=== PATIENT | male | born 1950 | race African-American/Black ===

== ENCOUNTER 2021-02-19 19:29 | Emergency (ER) | payer OTHER, SELFPAY | END 2021-02-19 20:04 | disposition home or self-care (01) | LOC: BURERS 19:29 | DX: S40.011A Contusion of right shoulder, initial encounter (principal); F17.210 Nicotine dependence, cigarettes, uncomplicated; W01.10XA Fall on same level from slipping, tripping and stumbling with subsequent striking against unspecified object, initial encounter ==

== ENCOUNTER 2022-09-20 10:29 | Emergency (ER) | payer MEDICARE ==
[2022-09-20] MEDS ORDERED: Ipratropium/Albuterol 3 ML NEB ONE (11:24)
[2022-09-20 11:44] LABS: #Basophils 0.1 thou/uL (0.0-0.2); #Eosinphils 0.3 thou/uL (0.0-0.7); #Lymphocytes 1.5 thou/uL (1.20-3.40); #Monocytes 0.4 thou/uL (0.11-0.59); #Neutrophils 2.4 thou/uL (1.40-6.50); %Basophils 2.7 % (0.0-1.0); %Eosinophils 5.9 % (0.0-10.0); %Monocytes 7.6 % (0.0-10.0); %Neutrophils 50.9 % (42.0-75.0); Mean Corpuscular HGB CONC 36.1 g/dL (32.0-36.0); Mean Corpuscular Hemoglobin 30.8 pg (27.0-31.0); Mean Corpuscular Volume 85.3 fl (78.0-98.0); Mean Platelet Volume 8.3 fL (7.4-10.4); Platelet Count 241 10x3/uL (130-400); Red Blood Cell (RBC) Count 5.54 mill/uL (4.70-6.10); White Blood Cell (WBC) Count 4.7 10x3/uL (4.8-10.8)
[2022-09-20 11:58] LABS: ALT (SGPT) 20 U/L (8-55); AST (SGOT) 25 U/L (5-34); Albumin 4.4 g/dL (3.4-4.8); Alkaline Phosphatase 73 U/L (40-110); Anion Gap 14 mmol/L (10-20); BUN (Urea Nitrogen) 12 mg/dL (8.4-25.7); Bilirubin, Total 0.7 mg/dL (0.2-1.2); Calc. Creatinine Clearance 0 mL/min (70-130); Calcium 9.4 mg/dL (7.8-10.44); Carbon Dioxide 23 mmol/L (23-31); Chloride 106 mmol/L (98-107); Estimated GFR 92; Glucose 93 mg/dL (83-110); Potassium 4.1 mmol/L (3.5-5.1); Protein, Total 7.4 g/dL (5.8-8.1); Sodium 139 mmol/L (136-145)
== END 2022-09-20 12:52 | disposition home or self-care (01) ==
LOC: BURERS 10:29
DX: J06.9 Acute upper respiratory infection, unspecified (principal); R06.2 Wheezing; D72.819 Decreased white blood cell count, unspecified; F17.210 Nicotine dependence, cigarettes, uncomplicated
CPT/HCPCS: 36415; 71045; 80053; 83880; 84484; 85025; 93005; J7620

== ENCOUNTER 2022-10-09 09:58 | Emergency (ER) | payer MEDICARE ==
[2022-10-09] MEDS ORDERED: cloNIDine 0.1 MG TAB ONE (10:20)
[2022-10-09] MEDS ORDERED: Amlodipine 5 MG TAB ONE (10:20)
[2022-10-09] MEDS ORDERED: Magnesium 2 GM/50 ML BAG (IN WATER) ONE (10:20)
[2022-10-09] MEDS ORDERED: methylPREDNISolone Sod Succ/PF 125 MG/2 ML VIAL ONE (10:20)
[2022-10-09] MEDS ORDERED: Ipratropium/Albuterol 3 ML NEB ONE (10:20)
[2022-10-09 10:25] LABS: Band 2 % (5-11); Eosinophils 5 % (0-10); Hemoglobin 16.8 g/dL (14.0-18.0); Lymphocytes 25 % (21-51); MDiff Complete? YES; Mean Corpuscular HGB CONC 33.9 g/dL (32.0-36.0); Mean Corpuscular Hemoglobin 29.7 pg (27.0-31.0); Mean Corpuscular Volume 87.6 fl (78.0-98.0); Mean Platelet Volume 7.7 fL (7.4-10.4); Monocytes 10 % (0-10); Neutrophil 55 % (42-75); Platelet Count 242 10x3/uL (130-400); RBC Distribution Width 13.7 % (11.5-14.5); Reactive Lymphocytes 1 % (0-10); Red Blood Cell (RBC) Count 5.65 mill/uL (4.70-6.10); White Blood Cell (WBC) Count 4.5 10x3/uL (4.8-10.8)
[2022-10-09 10:41] LABS: ALT (SGPT) 31 U/L (8-55); AST (SGOT) 30 U/L (5-34); Albumin 4.4 g/dL (3.4-4.8); Alkaline Phosphatase 72 U/L (40-110); Anion Gap 13 mmol/L (10-20); BUN (Urea Nitrogen) 14 mg/dL (8.4-25.7); Bilirubin, Total 0.8 mg/dL (0.2-1.2); Calc. Creatinine Clearance 0 mL/min (70-130); Calcium 9.4 mg/dL (7.8-10.44); Carbon Dioxide 23 mmol/L (23-31); Chloride 104 mmol/L (98-107); Estimated GFR 92; Globulin 3.4 g/dL (2.4-3.5); Glucose 84 mg/dL (83-110); Lipase 28 U/L (8-78); Magnesium 2.2 mg/dL (1.6-2.6); Potassium 3.9 mmol/L (3.5-5.1); Protein, Total 7.8 g/dL (5.8-8.1); Sodium 136 mmol/L (136-145)
[2022-10-09] MEDS ORDERED: Budesonide 0.5 MG/2 ML NEB ONE (10:49)
== END 2022-10-09 11:32 | disposition home or self-care (01) ==
LOC: BURERS 09:58
DX: J44.1 Chronic obstructive pulmonary disease with (acute) exacerbation (principal); D72.819 Decreased white blood cell count, unspecified; F17.210 Nicotine dependence, cigarettes, uncomplicated
CPT/HCPCS: 36415; 71045; 80053; 83605; 83690; 83735; 83880; 84484; 85025; 96365; 96375; J2930; J3475; J7611; J7620; J7626

== ENCOUNTER 2022-11-02 11:49 | Emergency (ER) | payer MEDICARE | END 2022-11-02 12:17 | disposition home or self-care (01) | LOC: BURERS 11:49 | DX: J44.9 Chronic obstructive pulmonary disease, unspecified (principal); I10 Essential (primary) hypertension; Z87.891 Personal history of nicotine dependence | CPT/HCPCS: 99281 ==

== ENCOUNTER 2022-11-08 09:30 | Emergency (ER) | payer MEDICARE ==
[2022-11-08] MEDS ORDERED: Ipratropium/Albuterol 3 ML NEB ONE ×2 (10:01→10:48)
[2022-11-08 10:06] LABS: #Basophils 0.1 thou/uL (0.0-0.2); #Eosinphils 0.3 thou/uL (0.0-0.7); #Lymphocytes 1.5 thou/uL (1.20-3.40); #Monocytes 0.5 thou/uL (0.11-0.59); #Neutrophils 2.2 thou/uL (1.40-6.50); %Basophils 1.8 % (0.0-1.0); %Eosinophils 6.6 % (0.0-10.0); %Lymphocytes 32.5 % (21.0-51.0); %Monocytes 10.4 % (0.0-10.0); %Neutrophils 48.8 % (42.0-75.0); Hemoglobin 16.2 g/dL (14.0-18.0); Mean Corpuscular HGB CONC 34.4 g/dL (32.0-36.0); Mean Corpuscular Hemoglobin 29.3 pg (27.0-31.0); Mean Corpuscular Volume 85.2 fl (78.0-98.0); Mean Platelet Volume 7.1 fL (7.4-10.4); Platelet Count 229 10x3/uL (130-400); RBC Distribution Width 13.3 % (11.5-14.5); Red Blood Cell (RBC) Count 5.54 mill/uL (4.70-6.10); White Blood Cell (WBC) Count 4.6 10x3/uL (4.8-10.8)
[2022-11-08 10:25] LABS: ALT (SGPT) 35 U/L (8-55); AST (SGOT) 46 U/L (5-34); Albumin 4.5 g/dL (3.4-4.8); Alkaline Phosphatase 83 U/L (40-110); Anion Gap 14 mmol/L (10-20); BUN (Urea Nitrogen) 16 mg/dL (8.4-25.7); Bilirubin, Total 0.5 mg/dL (0.2-1.2); Calc. Creatinine Clearance 0 mL/min (70-130); Calcium 9.4 mg/dL (7.8-10.44); Carbon Dioxide 22 mmol/L (23-31); Chloride 107 mmol/L (98-107); Estimated GFR 59; Globulin 3.2 g/dL (2.4-3.5); Glucose 93 mg/dL (83-110); Potassium 4.1 mmol/L (3.5-5.1); Protein, Total 7.7 g/dL (5.8-8.1); Sodium 139 mmol/L (136-145)
[2022-11-08] MEDS ORDERED: Dexamethasone 10 MG/ML VIAL ONE (12:00)
[2022-11-08] MEDS ORDERED: Doxycycline 100 MG CAP ONE (12:00)
== END 2022-11-08 12:25 | disposition home or self-care (01) ==
LOC: BURERS 09:30
DX: J44.1 Chronic obstructive pulmonary disease with (acute) exacerbation (principal); I10 Essential (primary) hypertension; I25.10 Atherosclerotic heart disease of native coronary artery without angina pectoris; Z87.891 Personal history of nicotine dependence; Z79.899 Other long term (current) drug therapy
CPT/HCPCS: 36415; 71045; 80053; 84484; 85025; 93005; 96372; J1100; J7620

== ENCOUNTER 2023-05-16 06:13 | Emergency (ER) | payer MEDICARE ==
[2023-05-16] MEDS ORDERED: methylPREDNISolone Sod Succ/PF 125 MG/2 ML VIAL ONE (06:51)
[2023-05-16] MEDS ORDERED: Ipratropium/Albuterol 3 ML NEB ONE (06:51)
== END 2023-05-16 07:20 | disposition home or self-care (01) ==
LOC: BURERS 06:13
DX: J44.1 Chronic obstructive pulmonary disease with (acute) exacerbation (principal); I10 Essential (primary) hypertension; Z87.891 Personal history of nicotine dependence; I25.10 Atherosclerotic heart disease of native coronary artery without angina pectoris; Z79.899 Other long term (current) drug therapy
CPT/HCPCS: 96372; J2930; J7620